=== PATIENT | female | born 1950 | race Caucasian/White ===

== ENCOUNTER 2016-08-15 01:35 | Day surgery (SDC) | payer MEDICARE, OTHER ==
[~2016-08-15] VITALS: Ht 149.9 cm; Wt 61.0 kg
[~2016-08-15 01:35] MED LIST: CHOL100045 PO; FURO-128 PO; GABA-502 PO; PANT40TA2 PO; POTA10CA42 PO; PREN-100 PO; SLO64 PO; SPIR50TA2 PO
[2016-08-15] MEDS ORDERED: 0.9% Sodium Chloride 1,000 ML IV SCH (06:00)
[2016-08-15] MEDS ORDERED: fentaNYL-PF 50 mCg/mL 2 mL Inj IVPUSH PRN (06:00)
[2016-08-15] MEDS ORDERED: Sodium Chloride LOK Flush 10 mL Syringe IV PRN (06:00)
[2016-08-15 08:51] VITALS: BP 130/71; PULSE 75; RESP 16; O2SAT 94
[2016-08-15 10:05] VITALS: BP 134/73; PULSE 86; RESP 16; O2SAT 94
[2016-08-15 10:17] VITALS: BP 115/62; PULSE 81; RESP 12; O2SAT 92
[2016-08-15 10:21] VITALS: BP 126/76; PULSE 83; RESP 12; O2SAT 94
--- NOTE | 2016-08-15 21:45 | ENDO ---
[address] [address] ENDOSCOPY PROCEDURE PATIENT: FARRAH MCINTOSH : 1950 MR#: [id number] ADMIT: 08/15/2016 JOB ID: [id number] DATE: 08/15/2016 PRIMARY PROVIDER: Saad Paredes MD PROCEDURE: Esophagogastroduodenoscopy. INDICATIONS: A 65-year-old female with a history of Unger's and cirrhosis with varices reporting for surveillance. EQUIPMENT: GIF H 180 J. SEDATION: 1. 4 mg Versed. 2. 100 mcg fentanyl. COMPLICATIONS: None identified. PROCEDURE IN DETAIL: After the risks and benefits were explained, written and verbal informed consent was obtained. The patient was brought into the endoscopy suite and placed into the left lateral decubitus position. Sedation was achieved as above. The scope introduced into the mouth through the bite block, and advanced to the second portion of the duodenum. The scope was slowly withdrawn to carefully examine the mucosa for any defects or lesions. Retroflexed views were accomplished in the stomach, the stomach was decompressed, the scope removed from the patient who tolerated the procedure well. FINDINGS: 1. Duodenum: No pathology identified from the bulb through to the second portion. 2. Stomach: No outlet obstruction. No mass lesions. Several benign-appearing medium-sized polyps in the neighborhood of about 6-8 mm each. Multiple photographs. None looked visually concerning. Retroflexed views otherwise disclosed a hiatal hernia. No varices noted. 3. Esophagus: The squamocolumnar junction correlated with the top of the gastric folds. There was perhaps approximately 3 cm of tongue-like projections into the tubular esophagus consistent with noncircumferential Unger's. This would be rated at C0M3. The patient again had grade 1 distal esophageal varices without stigmata. ENDOSCOPIC DIAGNOSES: 1. Small varices. 2. Short-segment Unger's. 3. Hiatal hernia. 4. Gastric polyps. RECOMMENDATIONS: Continue surveillance with repeat EGD in 18 months.
== END 2016-08-15 23:59 | disposition home or self-care (01) ==
LOC: END 01:35
PROVIDERS: ATTEND Internal Medicine Gastroenterology
DX: K22.70 Barrett's esophagus without dysplasia (principal); K70.30 Alcoholic cirrhosis of liver without ascites; I85.10 Secondary esophageal varices without bleeding; K44.9 Diaphragmatic hernia without obstruction or gangrene; K31.7 Polyp of stomach and duodenum; G62.1 Alcoholic polyneuropathy; I10 Essential (primary) hypertension; Z87.898 Personal history of other specified conditions
CPT/HCPCS: 43235; G0500; J7030